=== PATIENT | male | born 1975 | race Two or more races ===

== ENCOUNTER 2020-08-15 14:06 | Observation (INO) | payer MEDICAID ==
[2020-08-15] VITALS (7 sets, daily range): BP systolic 135–175; BP diastolic 76–101
[~2020-08-15] VITALS: Ht 182.9 cm; Wt 88.2 kg
[~2020-08-15 14:06] MED LIST: GLIM4TAB7 PO; LISI10TA27 PO; LOVA20TA2 PO; METF-438 PO
[2020-08-15 14:57] LABS: BASOPHILS # (AUTO) 0.1 X10'3 (0-0.2); BASOPHILS % (AUTO) 0.5 % (0-1); EOSINOPHILS # (AUTO) 0.1 X10'3 (0-0.9); EOSINOPHILS % (AUTO) 0.5 % (0-6); HEMATOCRIT 48.2 % (42.0-52.0); HEMOGLOBIN 16.6 g/dl (14.0-17.9); LYMPHOCYTES # (AUTO) 2.2 X10'3 (1.1-4.8); LYMPHOCYTES % (AUTO) 15.2 % (21-51); MEAN CORPUSCULAR HEMOGLOBIN 29.5 PG (27.0-31.0); MEAN CORPUSCULAR HGB CONC 34.5 g/dL (33.0-36.5); MEAN CORPUSCULAR VOLUME 85.6 FL (78-98); MEAN PLATELET VOLUME 7.9 FL (7.4-10.4); MONOCYTES # (AUTO) 1.4 X10'3 (0-0.9); MONOCYTES % (AUTO) 9.5 % (2-12); NEUTROPHILS # (AUTO) 10.7 X10'3 (1.8-7.7); NEUTROPHILS % (AUTO) 74.3 % (42-75); PLATELET COUNT 371 X10'3 (140-440); RED BLOOD COUNT 5.63 X10'6 (4.70-6.10); RED CELL DISTRIBUTION WIDTH 12.9 % (11.5-14.5); WHITE BLOOD COUNT 14.5 X10'3 (4.5-11.0)
[2020-08-15 15:30] LABS: ALANINE AMINOTRANSFERASE 20 U/L (12-78); ALBUMIN 3.5 G/DL (3.4-5.0); ALBUMIN/GLOBULIN RATIO 0.9 (1.1-1.5); ALKALINE PHOSPHATASE 98 IU/L (46-116); ANION GAP 14 (8-16); ASPARTATE AMINO TRANSFERASE 11 U/L (10-37); BLOOD UREA NITROGEN 25 MG/DL (7-18); BUN/CREATININE RATIO 27.8 (5.4-32.0); CALCIUM 8.8 MG/DL (8.5-10.1); CHLORIDE 101 MMOL/L (99-107); GLUCOSE 261 MG/DL (70-104); SODIUM 138 MMOL/L (135-145); TOTAL CARBON DIOXIDE 23.5 MMOL/L (24-32); TOTAL PROTEIN 7.4 G/DL (6.4-8.2); eGFR > 90 ML/MIN
[2020-08-15] MEDS ORDERED: aspirin 81mg tab.chew PO ONE (15:30)
[2020-08-15] MEDS ORDERED: diltiazem 5mg/ml 5ml inj. IV ONE ×2 (15:30→16:50)
[2020-08-15 15:43] LABS: PARTIAL THROMBOPLASTIN TIME 26 SECONDS (22-32)
[2020-08-15 16:08] LABS: CLARITY,URINE CLEAR (Clear); COLOR,URINE YELLOW (Yellow); GLUCOSE, URINE >=1000 mg/dl (Neg); KETONES,URINE >=80 mg/dl (Neg); LEUKOCYTE ESTERASE ,URINE NEGATIVE (Neg); NITRITES, URINE NEGATIVE (Neg); OCCULT BLOOD,URINE NEGATIVE (Neg); PH,URINE 5.5 (4.8-8.0); PROTEIN,URINE TRACE mg/dl (Neg)
[2020-08-15 16:10] LABS: UA COLLECTION TYPE URINAL
[2020-08-15 16:22] LABS: BACTERIA,URINE NONE SEEN /HPF (Neg); COARSE GRANULAR CAST 0-3 /LPF (NEGATIVE); MUCUS STRANDS FEW /LPF (Neg); RBC,URINE NONE SEEN /HPF (0-2); SQUAMOUS EPITHELIAL CELL,UR FEW /LPF (FEW); WBC,URINE 0-4 /HPF (0-4)
[2020-08-15 16:39] LABS: URINE AMPHETAMINE SCREEN NEGATIVE (Neg); URINE BARBITUATE SCREEN NEGATIVE (Neg); URINE BENZODIAZEPINES SCREEN NEGATIVE (Neg); URINE CANNABINOID SCREEN POSITIVE (Neg); URINE COCAINE SCREEN NEGATIVE (Neg); URINE METHADONE SCREEN NEGATIVE (Neg); URINE OPIATE SCREEN NEGATIVE (Neg); URINE PHENCYCLIDINE SCREEN NEGATIVE (Neg)
[2020-08-15 16:48] LABS: MAGNESIUM 1.6 MG/DL (1.5-2.4)
[2020-08-15 16:56] LABS: ETHANOL < 0.010 GM/DL (0.0-0.010)
[2020-08-15] MEDS ORDERED: VENL150C58 PO (17:34)
[2020-08-15] MEDS ORDERED: mag hydrox/Alum hydrox/simeth 30ml oral suspension PO PRN (17:35)
[2020-08-15] MEDS ORDERED: magnesium hydroxide 30ml (MOM) UD suspension PO PRN (17:35)
[2020-08-15] MEDS ORDERED: ondansetron/PF 4mg/2ml inj IV PRN (17:35)
[2020-08-15] MEDS ORDERED: acetaminophen 325mg tablet PO PRN (17:35)
[2020-08-15 17:54] LABS: HEMOGLOBIN A1C 10.5 % (4.5-6.2)
[2020-08-15] MEDS: normal saline 1000ml 1,000 ML IV SCH (19:14)
--- NOTE | 2020-08-15 19:37 | NUR ---
Patient in room ED 6. I have received report from IBRAHIMA ALARCON and had the opportunity to ask questions and assume patient care.
[2020-08-15] MEDS: diltiazem-NS 100mg/100ml 100 ML IV PRN (20:53)
[2020-08-15] MEDS: enoxaparin 60mg/0.6ml syringe SUBCUT SCH (20:54)
[2020-08-15] MEDS: enoxaparin 30mg/0.3ml syringe SUBCUT SCH (20:54)
--- NOTE | 2020-08-15 21:24 | NUR ---
CALL MD LYLES, FOR CARDIZEM RATE; PATIENT INITIALLY PRESENTRED IN 130'S WITH BP OF 155/84; DR Zeina LYLES SAID TO INCREASE CARDIZEM GTT TO 10MG/HR PER PROTOCOL BASED ON HIS VITAL SIGN PARAMETERS. I WENT TO CHANGE RATE-PATIENTS HEART RATE DROPPED TO 85; I THEN CALLED BACK TO SEE IF HE STILL WANTED INCREASE IN CARDIZEM; TRUPTI STATED TO KEEP RATE AT 5 MG/HR FOR NOW, AND CALL BACK IF HEART RATE INCREASES FOR FURTHER INSTRUCTIONS. ROBERT ALARCON
--- NOTE | 2020-08-15 23:15 | NUR ---
PATIENT HR 130'S ASYMPTOMATIC; called MD LYLES ; STATED TO INCREASE CARDIZEM TO 10 MG/HR; WILL CONTINUE TO MONITOR ROBERT ALARCON Addendum: 08/16/20 at 0207 by Ivette Mayo RN MD LYLES ROUNDED ON FLOOR,STATED TO CONTINUE TO RUN CARDIZEM AT 10 MG/HR UNTIL DAY SHIFT ARRIVES AT 0600, OR CHANGE OCCURS TO WARRANT CHANGE IN RATE. ROBERT ALARCON
[2020-08-16] VITALS: BP 139/80
[2020-08-16 01:00] VITALS: BP 131/79
[2020-08-16 02:00] VITALS: BP 124/84
[2020-08-16 03:49] LABS: BASOPHILS # (AUTO) 0.1 X10'3 (0-0.2); BASOPHILS % (AUTO) 0.8 % (0-1); EOSINOPHILS # (AUTO) 0.2 X10'3 (0-0.9); EOSINOPHILS % (AUTO) 1.7 % (0-6); HEMATOCRIT 46.5 % (42.0-52.0); HEMOGLOBIN 16.2 g/dl (14.0-17.9); LYMPHOCYTES # (AUTO) 2.7 X10'3 (1.1-4.8); LYMPHOCYTES % (AUTO) 25.4 % (21-51); MEAN CORPUSCULAR HEMOGLOBIN 30.1 PG (27.0-31.0); MEAN CORPUSCULAR HGB CONC 34.8 g/dL (33.0-36.5); MEAN CORPUSCULAR VOLUME 86.6 FL (78-98); MEAN PLATELET VOLUME 8.2 FL (7.4-10.4); MONOCYTES % (AUTO) 9.8 % (2-12); NEUTROPHILS # (AUTO) 6.7 X10'3 (1.8-7.7); NEUTROPHILS % (AUTO) 62.3 % (42-75); PLATELET COUNT 300 X10'3 (140-440); RED BLOOD COUNT 5.37 X10'6 (4.70-6.10); RED CELL DISTRIBUTION WIDTH 13.2 % (11.5-14.5); WHITE BLOOD COUNT 10.7 X10'3 (4.5-11.0)
[2020-08-16 03:52] LABS: ALBUMIN 3.1 G/DL (3.4-5.0); ANION GAP 10 (8-16); BLOOD UREA NITROGEN 24 MG/DL (7-18); BUN/CREATININE RATIO 35.8 (5.4-32.0); CALCIUM 8.9 MG/DL (8.5-10.1); CHLORIDE 102 MMOL/L (99-107); CREATININE 0.67 MG/DL (0.60-1.10); GLUCOSE 239 MG/DL (70-104); POTASSIUM 3.3 MMOL/L (3.5-5.1); SODIUM 139 MMOL/L (135-145); TOTAL CARBON DIOXIDE 26.6 MMOL/L (24-32); eGFR > 90 ML/MIN
[2020-08-16] MEDS ORDERED: magnesium Cl slow-release 64mg tablet PO PRN (04:25)
[2020-08-16] MEDS ORDERED: glucagon, human recombinant 1mg kit SUBCUT PRN (04:25)
[2020-08-16] MEDS ORDERED: insulin regular, human U-100 3ml vial - multi-dose SQ SCH (04:25)
[2020-08-16] MEDS ORDERED: MESSAGE TO PHARMACY PO ONE (04:25)
[2020-08-16] MEDS: normal saline 1000ml 1,000 ML IV SCH ×3 (04:25→05:41)
[2020-08-16] MEDS ORDERED: dextrose ORAL solution 15 GM/59 ML bottle PO PRN ×2 (04:25)
[2020-08-16] MEDS ORDERED: magnesium 4gm in 100ml NS 100 ML IV PRN (04:25)
[2020-08-16] MEDS ORDERED: potassium Cl 40MEQ/1/2NS 520ml 520 ML IV PRN (04:25)
[2020-08-16] MEDS ORDERED: potassium Cl 20 mEq SR tablet PO PRN ×2 (04:25)
[2020-08-16] MEDS ORDERED: insulin Lispro (HumaLOG) vial - multi-dose SQ SCH (04:25)
[2020-08-16] MEDS ORDERED: dextrose 50%-water 50ml dispensing syringe IV PRN ×2 (04:25)
[2020-08-16] MEDS: diltiazem-NS 100mg/100ml 100 ML IV PRN (05:35)
[2020-08-16 06:00] VITALS: BP 130/76
--- NOTE | 2020-08-16 06:05 | NUR ---
Patient in room MED 309. I have received report from DORIAN Steele and had the opportunity to ask questions and assume patient care.
--- NOTE | 2020-08-16 06:14 | NUR ---
Problems reprioritized. Patient report given, questions answered & plan of care reviewed with KENNETH ALARCON.
[2020-08-16] MEDS: enoxaparin 60mg/0.6ml syringe SUBCUT SCH (07:45)
[2020-08-16] MEDS: enoxaparin 30mg/0.3ml syringe SUBCUT SCH (07:45)
[2020-08-16] MEDS ORDERED: venlafaxine XR 75mg capsule (Q24H) PO SCH (08:00)
[2020-08-16] MEDS ORDERED: K and/or MAG REPLACEMENT MC SCH (08:00)
[2020-08-16 08:09] LABS: MAGNESIUM 1.6 MG/DL (1.5-2.4); POTASSIUM 3.1 MMOL/L (3.5-5.1)
[2020-08-16] MEDS ORDERED: diltiazem CD 120mg capsule (once-daily) PO ONE (10:00)
--- NOTE | 2020-08-16 10:04 | NUR ---
MD Corey order - cardizem 240mg PO now then turn off cardizem gtt after 1 hour.
[2020-08-16] MEDS ORDERED: LANTUS SQ (10:44)
[2020-08-16] MEDS ORDERED: APIX5TAB3 PO (10:44)
[2020-08-16] MEDS ORDERED: DILT240C90 PO (10:44)
[2020-08-16 11:00] VITALS: BP 107/40
--- NOTE | 2020-08-16 12:10 | NUR ---
DM Consult: A1C 10.5 hx T2DM. Pt admit w/ afib RVR hx N/V 5 days [employer] per EMR. Pt seen by RD for written/verbal DM ed w/ RD contact information provided. Pt reports has no issues w/ glucometer, test strips, or med refills, but only checks GLU maybe once daily. Per pt home GLU 160-180 though given A1C likely inaccurate; only takes metformin 1000mg BID at home for coverage. RD encouraged pt to f/u w/ PCP regarding additional meal coverage per PCP discretion. Pt reports no DM diet ed prior in quite some time. RD thoroughly reviewed carb portions, types of carbs, proteins, hydration, nutrition facts labels, and sick day guidelines. Addendum: 08/16/20 at [address] Amended: Links added.
--- NOTE | 2020-08-16 14:00 | NUR ---
Pt is stable for D/C per MD orders. All d/c paperwork was reviewed with patient. He had the opportunity to ask questions and get answers, RX were faxed to [facility] on [address]. Pt verbalized understanding. PIV removed - pt tolerated well. Pt walked out with nursing staff. Picked up by his daughter in private vehicle.
[2020-08-16] MEDS ORDERED: insulin glargine (Lantus) pen - multi-dose SQ SCH (21:00)
== END 2020-08-16 13:48 | disposition home or self-care (01) ==
LOC: ER 14:06 → ED HOLD 17:31 → EDBEDREQ 18:57 → MED 3N 20:36
PROVIDERS: ADMIT Family Medicine; ATTEND Family Medicine
DX: I48.0 Paroxysmal atrial fibrillation (principal); E11.9 Type 2 diabetes mellitus without complications; I10 Essential (primary) hypertension; E78.5 Hyperlipidemia, unspecified; F32.9 Major depressive disorder, single episode, unspecified; E78.00 Pure hypercholesterolemia, unspecified; I48.92 Unspecified atrial flutter; Z79.01 Long term (current) use of anticoagulants; Z79.4 Long term (current) use of insulin; Z79.899 Other long term (current) drug therapy
CPT/HCPCS: 36415; 71045; 80048; 80053; 80305; 80320; 81001; 82948; 83036; 83735; 83880; 84132; 84443; 84484; 85025; 85610; 85730; 87081; 93005; 93306; 96365; 96366; 96372; 96376; 99291; G0378; J1650; J1815; J7030; J3490

== ENCOUNTER 2023-02-03 06:59 | Emergency (ER) | payer MEDICAID ==
[~2023-02-03] VITALS: Ht 182.9 cm; Wt 102.3 kg
[~2023-02-03 06:59] MED LIST changes: +APIX5TAB3 PO; +DILT240C90 PO; -GLIM4TAB7 PO; -LISI10TA27 PO; -LOVA20TA2 PO; +VENL150C58 PO
[2023-02-03 07:06] VITALS: TEMP 98
[2023-02-03] MEDS ORDERED: proCHLORperazine 10 MG/2 ml inj IV ONE (07:15)
[2023-02-03] MEDS ORDERED: normal saline 1000ML IV soln IVB ONE (07:15)
[2023-02-03] MEDS ORDERED: morphine 2 MG/ML inj. syringe IV ONE (07:15)
[2023-02-03 07:49] LABS: BASOPHILS % (AUTO) 0.3 % (0-1); EOSINOPHILS % (AUTO) 0 % (0-6); HEMATOCRIT 48.8 % (42.0-52.0); HEMOGLOBIN 16.7 g/dl (14.0-17.9); LYMPHOCYTES # (AUTO) 0.7 X10'3 (1.1-4.8); LYMPHOCYTES % (AUTO) 5.3 % (21-51); MEAN CORPUSCULAR HEMOGLOBIN 29.7 PG (27.0-31.0); MEAN CORPUSCULAR HGB CONC 34.2 g/dL (33.0-36.5); MEAN CORPUSCULAR VOLUME 86.8 FL (78-98); MONOCYTES # (AUTO) 0.6 X10'3 (0-0.9); MONOCYTES % (AUTO) 4.2 % (2-12); NEUTROPHILS # (AUTO) 12.5 X10'3 (1.8-7.7); NEUTROPHILS % (AUTO) 90.2 % (42-75); PLATELET COUNT 342 X10'3 (140-440); RED BLOOD COUNT 5.61 X10'6 (4.70-6.10); RED CELL DISTRIBUTION WIDTH 13.3 % (11.5-14.5); WHITE BLOOD COUNT 13.8 X10'3 (4.5-11.0)
[2023-02-03 08:02] LABS: ALANINE AMINOTRANSFERASE 23 U/L (12-78); ALBUMIN 4.4 G/DL (3.4-5.0); ALBUMIN/GLOBULIN RATIO 1.1 (1.1-1.5); ALKALINE PHOSPHATASE 99 IU/L (46-116); ANION GAP 14 (8-16); ASPARTATE AMINO TRANSFERASE 11 U/L (10-37); BILIRUBIN,TOTAL 0.9 MG/DL (0.1-1.0); BLOOD UREA NITROGEN 15 MG/DL (7-18); BUN/CREATININE RATIO 13.8 (10.0-20.0); CALCIUM 9.7 MG/DL (8.5-10.1); CHLORIDE 97 MMOL/L (99-107); CREATININE 1.09 MG/DL (0.60-1.10); GLUCOSE 361 MG/DL (70-104); LIPASE 66 U/L (73-393); SODIUM 134 MMOL/L (135-145); TOTAL CARBON DIOXIDE 23.3 MMOL/L (24-32); TOTAL PROTEIN 8.3 G/DL (6.4-8.2); eCRCL 93 ML/MIN; eGFR 73 ML/MIN
[2023-02-03] MEDS ORDERED: iohexol 300mg/ml 100ml inj. ONE (08:07)
[2023-02-03 08:34] LABS: BILIRUBIN,URINE NEGATIVE (Neg); CLARITY,URINE CLEAR (Clear); COLOR,URINE YELLOW (Yellow); GLUCOSE, URINE >=1000 mg/dl (Neg); KETONES,URINE >=80 mg/dl (Neg); LEUKOCYTE ESTERASE ,URINE NEGATIVE (Neg); NITRITES, URINE NEGATIVE (Neg); OCCULT BLOOD,URINE TRACE-INTACT (Neg); PH,URINE 5.5 (4.8-8.0); PROTEIN,URINE TRACE mg/dl (Neg); UROBILINOGEN,URINE 0.2 E.U/dL (0.2-1.0)
[2023-02-03 08:35] LABS: UA COLLECTION TYPE CLN CATCH MIDSTREAM
[2023-02-03 08:37] LABS: RBC,URINE 0-2 /HPF (0-2); SQUAMOUS EPITHELIAL CELL,UR FEW /LPF (FEW)
[2023-02-03 08:38] LABS: WBC,URINE 0-4 /HPF (0-4)
[2023-02-03 08:39] LABS: COARSE GRANULAR CAST 0-3 /LPF (NEGATIVE); MUCUS STRANDS FEW /LPF (Neg)
[2023-02-03] MEDS ORDERED: insulin regular, human 10 units/0.1 ml syringe IV ONE (08:50)
[2023-02-03 10:53] VITALS: BP 151/88; PULSE 109; RESP 14; O2SAT 97
[2023-02-03] MEDS ORDERED: DICY10CA88 PO (11:19)
[2023-02-03] MEDS ORDERED: ONDA4TAB12 PO (11:19)
--- NOTE | 2023-02-03 11:31 | NUR ---
DISCHARGE COMPLETED BY DAVID ALARCON [facility]. PT LEFT ED AMBULATORY IN STABLE CONDITION. IV DISCONTINUED WITH TIP INTACT AND NO COMPLICATION. PT VERBALIZED UNDERSTANDING TO ALL DISCHARGE/RX INSTRUCTIONS PROVIDED.
== END 2023-02-03 11:29 | disposition home or self-care (01) ==
LOC: ER 07:00
DX: K52.89 Other specified noninfective gastroenteritis and colitis (principal); E86.0 Dehydration; E87.6 Hypokalemia; E78.00 Pure hypercholesterolemia, unspecified; I10 Essential (primary) hypertension; E11.9 Type 2 diabetes mellitus without complications; Z79.899 Other long term (current) drug therapy
CPT/HCPCS: 74177; 80053; 81001; 82948; 83690; 85025; 96374; 96375; 99285; A6266; J0780; J1815; J2270; J3490; J7030; Q9967; A6449

== ENCOUNTER 2023-10-23 11:30 | Emergency (ER) | payer MEDICAID ==
[~2023-10-23] VITALS: Ht 182.9 cm; Wt 98.2 kg
[~2023-10-23 11:30] MED LIST changes: +DICY10CA88 PO; +ONDA4TAB12 PO
[2023-10-23] MEDS ORDERED: NO HOME MEDS (11:49)
[2023-10-23 11:51] LABS: BASOPHILS # (AUTO) 0.1 X10'3 (0-0.2); BASOPHILS % (AUTO) 0.4 % (0-1); EOSINOPHILS % (AUTO) 0.2 % (0-6); HEMATOCRIT 49.8 % (42.0-52.0); HEMOGLOBIN 16.9 g/dl (14.0-17.9); LYMPHOCYTES # (AUTO) 1.5 X10'3 (1.1-4.8); LYMPHOCYTES % (AUTO) 10.9 % (21-51); MEAN CORPUSCULAR HEMOGLOBIN 29.5 PG (27.0-31.0); MEAN CORPUSCULAR HGB CONC 33.9 g/dL (33.0-36.5); MEAN CORPUSCULAR VOLUME 86.9 FL (78-98); MEAN PLATELET VOLUME 7.8 FL (7.4-10.4); MONOCYTES # (AUTO) 0.6 X10'3 (0-0.9); MONOCYTES % (AUTO) 4.6 % (2-12); NEUTROPHILS # (AUTO) 11.7 X10'3 (1.8-7.7); NEUTROPHILS % (AUTO) 83.9 % (42-75); PLATELET COUNT 388 X10'3 (140-440); RED BLOOD COUNT 5.73 X10'6 (4.70-6.10); RED CELL DISTRIBUTION WIDTH 13.5 % (11.5-14.5); WHITE BLOOD COUNT 13.9 X10'3 (4.5-11.0)
[2023-10-23 12:11] LABS: ALBUMIN 4.6 G/DL (3.4-5.0); ANION GAP 11 (8-16); BLOOD UREA NITROGEN 26 MG/DL (7-18); BUN/CREATININE RATIO 21.8 (10.0-20.0); CALCIUM 9.8 MG/DL (8.5-10.1); CHLORIDE 93 MMOL/L (99-107); CREATININE 1.19 MG/DL (0.60-1.10); GLUCOSE 315 MG/DL (70-104); POTASSIUM 4.2 MMOL/L (3.5-5.1); PRO BRAIN NATRIURETIC PEPTIDE 77 PG/ML (0-125); SODIUM 131 MMOL/L (135-145); TOTAL CARBON DIOXIDE 27.1 MMOL/L (24-32); eCRCL 84 ML/MIN; eGFR 66 ML/MIN
[2023-10-23] MEDS ORDERED: ONDA4TAB12 PO (17:31)
[2023-10-23] MEDS ORDERED: DICY10CA88 PO (17:31)
[2023-10-23] MEDS: metoclopramide 5 mg/ml inj IV ONE (18:51)
[2023-10-23] MEDS: ketorolac tromethamine 15mg/ml inj. IV ONE (18:51)
[2023-10-23] MEDS: diphenhydrAMINE 50 mg/ml inj IV ONE (18:52)
[2023-10-23] MEDS: normal saline 1000ML IV soln IVB ONE (18:52)
[2023-10-23] MEDS: glycopyrrolate 0.2mg/ml inj IV ONE (18:52)
[2023-10-23 20:45] VITALS: BP 159/71; PULSE 101; RESP 13; TEMP 97.9; O2SAT 98
== END 2023-10-23 20:46 | disposition home or self-care (01) ==
LOC: ER 11:31
DX: R11.2 Nausea with vomiting, unspecified (principal); E86.0 Dehydration; E78.00 Pure hypercholesterolemia, unspecified; I10 Essential (primary) hypertension; E11.9 Type 2 diabetes mellitus without complications; Z79.2 Long term (current) use of antibiotics; Z79.899 Other long term (current) drug therapy
CPT/HCPCS: 36415; 71045; 80048; 83880; 84145; 84484; 85025; 93005; 96361; 96374; 96375; 99285; J1200; J1885; J2765; J3490; J7030

== ENCOUNTER 2024-01-01 06:28 | Emergency (ER) | payer MEDICAID ==
[~2024-01-01] VITALS: Ht 182.9 cm; Wt 99.0 kg
[~2024-01-01 06:28] MED LIST changes: -APIX5TAB3 PO; -DICY10CA88 PO; -DILT240C90 PO; -METF-438 PO; +NO HOME MEDS; +ONDA-243 PO; -ONDA4TAB12 PO; -VENL150C58 PO
[2024-01-01 07:25] LABS: BASOPHILS # (AUTO) 0.1 X10'3 (0-0.2); BASOPHILS % (AUTO) 0.3 % (0-1); EOSINOPHILS # (AUTO) 0.2 X10'3 (0-0.9); EOSINOPHILS % (AUTO) 1.6 % (0-6); HEMATOCRIT 50.3 % (42.0-52.0); HEMOGLOBIN 16.6 g/dl (14.0-17.9); LYMPHOCYTES % (AUTO) 13.1 % (21-51); MEAN CORPUSCULAR HEMOGLOBIN 29.1 PG (27.0-31.0); MEAN CORPUSCULAR VOLUME 88.4 FL (78-98); MEAN PLATELET VOLUME 7.4 FL (7.4-10.4); MONOCYTES # (AUTO) 0.9 X10'3 (0-0.9); MONOCYTES % (AUTO) 6.1 % (2-12); NEUTROPHILS # (AUTO) 12.1 X10'3 (1.8-7.7); NEUTROPHILS % (AUTO) 78.9 % (42-75); PLATELET COUNT 339 X10'3 (140-440); RED BLOOD COUNT 5.68 X10'6 (4.70-6.10); RED CELL DISTRIBUTION WIDTH 13.4 % (11.5-14.5); WHITE BLOOD COUNT 15.3 X10'3 (4.5-11.0)
[2024-01-01] MEDS ORDERED: SEMA0.258 (07:32)
[2024-01-01] MEDS ORDERED: ASPI-1397 PO (07:32)
[2024-01-01] MEDS ORDERED: HYDR-3686 (07:32)
[2024-01-01] MEDS ORDERED: LISI2.5T14 PO (07:32)
[2024-01-01] MEDS ORDERED: IBUP-1985 (07:32)
[2024-01-01] MEDS ORDERED: METF-438 PO (07:32)
[2024-01-01] MEDS ORDERED: DICY-19 (07:32)
[2024-01-01] MEDS ORDERED: DILT120C77 PO (07:32)
[2024-01-01] MEDS ORDERED: LINA5TAB4 PO (07:32)
[2024-01-01 07:39] LABS: ALANINE AMINOTRANSFERASE 23 U/L (12-78); ALBUMIN 4.1 G/DL (3.4-5.0); ALKALINE PHOSPHATASE 68 IU/L (46-116); ANION GAP 7 (8-16); ASPARTATE AMINO TRANSFERASE 10 U/L (10-37); BILIRUBIN,TOTAL 0.4 MG/DL (0.1-1.0); BLOOD UREA NITROGEN 21 MG/DL (7-18); BUN/CREATININE RATIO 26.6 (10.0-20.0); CALCIUM 9.2 MG/DL (8.5-10.1); CHLORIDE 102 MMOL/L (99-107); CREATININE 0.79 MG/DL (0.60-1.10); GLUCOSE 154 MG/DL (70-104); SODIUM 139 MMOL/L (135-145); TOTAL CARBON DIOXIDE 29.9 MMOL/L (24-32); TOTAL PROTEIN 8.2 G/DL (6.4-8.2); eCRCL 127 ML/MIN; eGFR > 90 ML/MIN
[2024-01-01 07:46] LABS: PRO BRAIN NATRIURETIC PEPTIDE 86 PG/ML (0-125)
[2024-01-01] MEDS: ondansetron/PF 4mg/2ml inj IV ONE (08:14)
[2024-01-01 09:02] VITALS: BP 128/74; PULSE 84; RESP 14; TEMP 97.9; O2SAT 97
== END 2024-01-01 10:59 | disposition home or self-care (01) ==
LOC: ER 06:29
DX: R55 Syncope and collapse (principal); R11.10 Vomiting, unspecified; E78.00 Pure hypercholesterolemia, unspecified; I10 Essential (primary) hypertension; F32.A Depression, unspecified; E10.9 Type 1 diabetes mellitus without complications; Z79.82 Long term (current) use of aspirin; Z79.84 Long term (current) use of oral hypoglycemic drugs; Z79.899 Other long term (current) drug therapy
CPT/HCPCS: 36415; 71045; 80053; 82948; 83880; 84484; 85025; 93005; 96374; 99285; J2405; J7030

== ENCOUNTER 2024-02-22 06:32 | Emergency (ER) | payer MEDICAID ==
[~2024-02-22] VITALS: Ht 182.9 cm; Wt 94.4 kg
[~2024-02-22 06:32] MED LIST changes: +ASPI-1397 PO; +DICY-19; +DILT120C77 PO; +HYDR-3686; +IBUP-1985; +LINA5TAB4 PO; +LISI2.5T14 PO; +METF-438 PO; +SEMA0.258
[2024-02-22 06:41] VITALS: BP 147/86; PULSE 95; RESP 18; TEMP 97.2; O2SAT 99
[2024-02-22 07:37] LABS: BILIRUBIN,URINE NEGATIVE (Neg); CLARITY,URINE CLEAR (Clear); COLOR,URINE YELLOW (Yellow); GLUCOSE, URINE >=1000 mg/dl (Neg); KETONES,URINE NEGATIVE (Neg); LEUKOCYTE ESTERASE ,URINE NEGATIVE (Neg); NITRITES, URINE NEGATIVE (Neg); OCCULT BLOOD,URINE NEGATIVE (Neg); PH,URINE 7.5 (4.8-8.0); PROTEIN,URINE NEGATIVE (Neg); UROBILINOGEN,URINE 0.2 E.U/dL (0.2-1.0)
[2024-02-22 07:38] LABS: ALANINE AMINOTRANSFERASE 20 U/L (12-78); ALBUMIN 3.6 G/DL (3.4-5.0); ALKALINE PHOSPHATASE 67 IU/L (46-116); ANION GAP 9 (8-16); ASPARTATE AMINO TRANSFERASE 14 U/L (10-37); BILIRUBIN,TOTAL 0.4 MG/DL (0.1-1.0); BLOOD UREA NITROGEN 18 MG/DL (7-18); BUN/CREATININE RATIO 20.2 (10.0-20.0); CALCIUM 8.6 MG/DL (8.5-10.1); CHLORIDE 104 MMOL/L (99-107); CREATININE 0.89 MG/DL (0.60-1.10); GLUCOSE 220 MG/DL (70-104); SODIUM 139 MMOL/L (135-145); TOTAL CARBON DIOXIDE 26.4 MMOL/L (24-32); TOTAL PROTEIN 7.2 G/DL (6.4-8.2); eCRCL 113 ML/MIN; eGFR > 90 ML/MIN
[2024-02-22 07:39] LABS: APTT 26 SECONDS (22-32); INR 0.9 INR; PROTHROMBIN TIME 9.9 SECONDS (9.0-12.0)
[2024-02-22 07:42] LABS: URINE AMPHETAMINE SCREEN NEGATIVE (Neg); URINE BARBITUATE SCREEN NEGATIVE (Neg); URINE BENZODIAZEPINES SCREEN NEGATIVE (Neg); URINE CANNABINOID SCREEN POSITIVE (Neg); URINE COCAINE SCREEN NEGATIVE (Neg); URINE METHADONE SCREEN NEGATIVE (Neg); URINE OPIATE SCREEN NEGATIVE (Neg); URINE PHENCYCLIDINE SCREEN NEGATIVE (Neg)
[2024-02-22 07:47] LABS: FREE T4 (FREE THYROXINE) 1.11 NG/DL (0.73-1.40); LIPASE 40 U/L (16-77); PRO BRAIN NATRIURETIC PEPTIDE 63 PG/ML (0-125); THYROID STIMULATING HORMONE 0.53 ulU/ml (0.34-4.50)
[2024-02-22 07:55] LABS: UA COLLECTION TYPE CLN CATCH MIDSTREAM
[2024-02-22 07:57] LABS: BACTERIA,URINE FEW /HPF (Neg); MUCUS STRANDS NONE SEEN /LPF (Neg); RBC,URINE 0-2 /HPF (0-2); SQUAMOUS EPITHELIAL CELL,UR FEW /LPF (FEW); WBC,URINE 0-4 /HPF (0-4)
[2024-02-22 08:07] LABS: BASOPHILS # (AUTO) 0.1 X10'3 (0-0.2); EOSINOPHILS # (AUTO) 0.2 X10'3 (0-0.9); EOSINOPHILS % (AUTO) 1.9 % (0-6); HEMATOCRIT 46.9 % (42.0-52.0); LYMPHOCYTES # (AUTO) 1.3 X10'3 (1.1-4.8); LYMPHOCYTES % (AUTO) 13.1 % (21-51); MEAN CORPUSCULAR HEMOGLOBIN 30.1 PG (27.0-31.0); MEAN CORPUSCULAR HGB CONC 34.1 g/dL (33.0-36.5); MEAN CORPUSCULAR VOLUME 88.2 FL (78-98); MEAN PLATELET VOLUME 7.7 FL (7.4-10.4); MONOCYTES # (AUTO) 0.7 X10'3 (0-0.9); MONOCYTES % (AUTO) 7.1 % (2-12); NEUTROPHILS # (AUTO) 7.4 X10'3 (1.8-7.7); NEUTROPHILS % (AUTO) 76.9 % (42-75); PLATELET COUNT 317 X10'3 (140-440); RED BLOOD COUNT 5.32 X10'6 (4.70-6.10); RED CELL DISTRIBUTION WIDTH 13.5 % (11.5-14.5); WHITE BLOOD COUNT 9.6 X10'3 (4.5-11.0)
== END 2024-02-22 08:28 | disposition home or self-care (01) ==
LOC: ER 06:33
DX: R55 Syncope and collapse (principal); E10.65 Type 1 diabetes mellitus with hyperglycemia; E78.00 Pure hypercholesterolemia, unspecified; I10 Essential (primary) hypertension; F32.A Depression, unspecified; Z79.82 Long term (current) use of aspirin; Z79.899 Other long term (current) drug therapy; Z79.84 Long term (current) use of oral hypoglycemic drugs; Z79.4 Long term (current) use of insulin
CPT/HCPCS: 36415; 70450; 71045; 74176; 80053; 80305; 81001; 82948; 83690; 83880; 84439; 84443; 84484; 85025; 85610; 85730; 93005; 99285